=== PATIENT | female | born 1990 | race African-American/Black ===

== ENCOUNTER 2025-05-10 10:30 | Emergency (ER) | payer SELFPAY ==
[2025-05-10 10:33] VITALS: BP 132/85; PULSE 114; RESP 16; TEMP 36.5; O2SAT 100; BMI 32.1
--- NOTE | 2025-05-10 11:19 | EDS_ITS ---
HPI HPI - GI History of Present Illness Chief Complaint: Nausea/Vomiting Informant: patient and friend Narrative Narrative: Patient is a 34-year-old female presenting with persistent emesis, hematemesis, and epigastric abdominal pain. Patient is accompanied by a friend who is supplementing history. Parks And Recreation Manager services were used for this visit, as pt speaks Taiwanese Creole. - Reports emesis since March, with hematemesis. (3-4 weeks) - Associated symptoms include nausea, inability to eat or sleep, and significant acid reflux triggering emesis. - Reports no lower abdominal pain, just epigastric - Denies vaginal bleeding, discharge, or urinary issues. - LMP was 03/14; has not had a menstrual cycle since. Usually has regular menstrual cycles. - Has not performed a home test; concerned about possible , which is why I am here. - 2, para 1 A1 - miscarriage; has a 7-year-old child. PFSH PFSH Home Medications ?Medication ?Instructions ?Recorded ?Last Taken ?Type famotidine 40 mg tablet 40 mg PO DAILY #30 tabs 04/29 07/24 Unknown Rx ondansetron 8 mg disintegrating 8 mg PO Q8H PRN nausea and 05/10/25 Unknown Rx tablet vomiting #15 tabs vit no.95-ferrous 1 tab PO DAILY #30 tabs 05/23 Unknown Rx fumarate 28 mg-folic acid 800 mcg tablet () Allergy/AdvReac Type Severity Reaction Status Date / Time No Known Allergies Allergy Verified 05/10/25 10:37 Surgical History (Updated 05/10/25 @ 11:31 by Karen Su) History of appendectomy Social History Smoking Status: Never smoker ROS [facility] ED Constitutional Constitutional ED: Denies chills or fever(s) Eyes Eyes: Denies change in vision or diplopia ENT ENT ED: Denies rhinorrhea or sore throat Cardiovascular Cardiovascular: Denies chest pain, palpitations or syncope Respiratory/Chest Respiratory/Chest: Denies cough or dyspnea Gastrointestinal Gastrointestinal: Reports abdominal pain, hematemesis, nausea and vomiting; Denies diarrhea, hematochezia or melena Genitourinary Genitourinary ED: Reports LMP (females 10-50) Details: Comment: (03/14/25); Denies dysuria or hematuria Musculoskeletal Musculoskeletal: Denies back pain or neck pain Integumentary Denies abscess or rash Neurologic Neurologic: Denies headache(s), paresthesias or weakness Psychiatric Psychiatric: Denies anxiety or suicidal thoughts EXAM Physical Exam Const Vital Signs: 05/10/25 10:33 05/10/25 12:32 05/10/25 14:00 Temperature 97.7 F L Temperature Source Oral Pulse Rate 114 H 91 79 Respiratory Rate 16 16 Blood Pressure 132/85 H 115/67 100/82 H Blood Pressure Mean 100 83 88 Pulse Ox 100 Oxygen Delivery Method Room Air Positive well nourished and well developed Constitutional Narrative: well-appearing, nad General Appearance ED: well developed and NAD HEENT Reports moist mucous membranes normocephalic and atraumatic Eyes PERRL and EOMs intact bilaterally Neck full ROM and supple Resp normal respiratory effort and clear to auscultation bilaterally Cardio regular rate, regular rhythm and no murmurs GI non-distended GI Narrative: Very mild epigastric tenderness no guarding or rebound. No pulsatile mass. Otherwise benign abdomen no significant tenderness in the lower abdomen or king prapubic. Auscultation: normoactive bowel sounds Palpation: soft Back/Spine no CVA tenderness General Back: other FROM Extremity normal to inspection General Extremety ED: Negative for edema, pulses abnormal or tenderness General Extremity: Negative for edema or pulses abnormal Neuro oriented x3, CN's II-XII intact bilaterally and no sensory deficits noted Sensorium / Orientation: awake and alert Motor Exam: strength 5/5 throughout Psych mental status grossly normal and thought process normal Skin no rashes or lesions noted and no wounds MDM MDM MDM Narrative Medical decision making narrative: Assessment: The patient is a 34-year-old female presenting for several-week history of nausea, vomiting with intermittent blood, lower abdominal pain, and refractory acid reflux. Urine testing in the ED is positive for , placing her in the first trimester; symptoms are therefore attributed to early ?related hyperemesis and underlying gastroesophageal reflux. She does not have any pelvic pain or tenderness or vaginal bleeding, so emergent ultrasound is not indicated at this time, advised to follow-up. Plan: - Administered ondansetron in ED for active nausea. - Initiated oral acid-suppressive therapy for reflux (medication name to be dispensed on discharge). - Prescribed outpatient ondansetron for continued nausea control. - Referral to care center/[facility] for first-trimester care. 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 However some of this was limited due to connection problems with the plastic technician service. Diagnostics: - Urine test ? positive. labs normal otherwise. [place] [id number]. Reevaluations: - Patient reassessed after ondansetron; continues to note nausea but with some improvement. No vomiting in ED. Is comfortable-appearing Portions of this note were generated using voice recognition software ([employer] Dictation). I have reviewed the contents and every effort has been made to ensure accuracy; however, inadvertent errors in grammar, spelling, punctuation, or word choice may occur, that were not noted before signing the document and should not alter the intended clinical meaning. Lab Data Attestation: I reviewed the patient's lab results. Labs: Laboratory Results - last 24 hr 05/10/25 05/10/25 11:25 11:40 WBC 4.3 L RBC 4.71 Hgb 12.9 Hct 39.0 MCV 82.8 MCH 27.4 MCHC 33.1 RDW Std Deviation 38.2 RDW Coeff of Josué 12.6 Plt Count 155 MPV 10.8 Immature Gran % (Auto) 0.200 Neut % (Auto) 52.3 Lymph % (Auto) 33.1 [place] % (Auto) 13.4 H Eos % (Auto) 0.5 Baso % (Auto) 0.5 Absolute Neuts (auto) 2.3 Absolute Lymphs (auto) 1.43 Nucleated RBC % 0 Sodium 137 Potassium 3.3 Chloride 104 Carbon Dioxide 21.9 Anion Gap 11 BUN 6 Creatinine 0.78 Estim Creat Clear Calc 118.93 Est GFR (MDRD) Non-Af 103 BUN/Creatinine Ratio 7.3 L Glucose 96 Calcium 9.2 Total Bilirubin 0.27 AST 15 ALT 11 Alkaline Phosphatase 46 Total Protein 7.0 Albumin 4.3 Globulin 2.8 Albumin/Globulin Ratio 1.5 Lipase 20 HCG, Quant [id number] H Urine Color Yellow Urine Clarity Sl. Cloudy Urine pH 6.0 Ur Specific [place] 1.015 Urine Protein 30 H Urine Glucose (UA) Normal Urine Ketones Negative Urine Occult Blood Negative Urine Nitrite Negative Urine Bilirubin Negative Urine Urobilinogen Normal Ur Leukocyte Esterase Negative Urine RBC 0 SEEN Urine WBC 0 SEEN Ur Squamous Epith Cells 0-5 SEEN Urine Bacteria 1+ Urine Mucus 0 SEEN Urine Test Positive H Discharge Plan Triage Chief Complaint: Nausea/Vomiting ED Provider: Hector Silverio Dx/Rx/DC Orders Clinical Impression: Nausea and vomiting in prior to 22 weeks gestation, First trimester p regnancy, Acute epigastric pain Instructions: 1st Trimester Prescriptions: New ondansetron 8 mg tablet,disintegrating 8 mg PO Q8H PRN (Reason: nausea and vomiting) Qty: 15 0RF PNV no.95-ferrous fumarate-FA [] 28 mg iron- 800 mcg tablet 1 tab PO DAILY Qty: 30 0RF famotidine 40 mg tablet 40 mg PO DAILY Qty: 30 0RF Primary Care Provider: Care Physician,No Primary Referrals: Lien Morgan MD [Med Staff - Active Staff, Obstetrics-Gynecology (OBGYN)] - As soon as possible Referral Note: or care center Activity Restrictions/Additional Instructions: Diphenhydramine as needed at nighttime for trouble sleeping. Print Language: Taiwanese Creole Disposition Disposition: Home, Self Care
[2025-05-10] MEDS: 0.9% Normal Saline (1000mL) 1,000 ML 999 ML IV (11:29)
[2025-05-10 11:32] LABS: Hematocrit 39.0 % (37-47); Hemoglobin 12.9 g/dL (12.0-15.0); Immature Granulocytes Count 0.010 X10^3/uL (0.0-0.0); Mean Corp Hgb Conc 33.1 g/dL (32-36); Mean Corpuscular Volume 82.8 fL (81-99); Mean Platelet Vol. 10.8 fl (6.2-12.0); NRBC Flagged by Analyzer 0 % (0-5); Platelet Count 155 K/mm3 (150-450); RBC Distribution Width CV 12.6 % (11.6-14.6); RBC Distribution Width SD 38.2 fl (35.1-43.9); Red Blood Count 4.71 M/mm3 (4.2-5.4); White Blood Count 4.3 K/mm3 (4.4-11.0)
[2025-05-10 11:43] LABS: Mucous, Urine 0 SEEN /hpf (<or=2+); Red Blood Cells-Urine 0 SEEN /hpf (0-5)
[2025-05-10 11:48] LABS: Color, Urine Yellow (Yellow); Glucose, Dipstick Normal (Normal); Ketone-Dipstick Negative (Negative); Leukocyte Esterase-Dipstick Negative /ul (Negative); Nitrite-Dipstick Negative (Negative); Occult Blood-Urine Negative /ul (Negative); Protein-Dipstick 30 mg/dl (Negative); Specific Gravity, Urine 1.015 (1.002-1.030); Urine Bilirubin Dipstick Negative (Negative)
[2025-05-10 11:51] LABS: AST(SGOT) 15 U/L (<=31); Alanine Aminotransfer ALT/SGPT 11 U/L (<=34); Albumin, Serum 4.3 g/dL (3.5-5.0); Alkaline Phosphatase 46 U/L (35-104); Anion Gap 11 (5-15); BUN 6 mg/dL (4-19); BUN/Creat Ratio 7.3 RATIO (10-20); Calcium,Total 9.2 mg/dL (7.6-11.0); Carbon Dioxide 21.9 mmol/L (21.0-32.0); Chloride 104 mmol/L (98-108); Estimated Creatinine Clearance 118.93 ml/min (50-250); Globulin 2.8 g/dL (2.2-4.2); Glucose 96 mg/dL (70-99); Lipase 20 U/L (13-75); Potassium 3.3 mmol/L (3.3-5.1)
[2025-05-10 11:54] LABS: Squamous Epithelial Cells - UA 0-5 SEEN /hpf (5-10)
[2025-05-10 11:55] LABS: Internal QC Validated? YES +Cl - CLEAR BKGD
[2025-05-10 11:57] LABS: Pregnancy, Urine Positive Negative
[2025-05-10 12:32] VITALS: BP 115/67; PULSE 91; RESP 16
[2025-05-10 13:32] LABS: hCG Titer Quant., Serum 130152 mIU/mL (<9 non-preg)
[2025-05-10 14:00] VITALS: BP 100/82; PULSE 79
[2025-05-10 14:56] VITALS: BP 116/79; PULSE 86; RESP 16; TEMP 36.5; O2SAT 100
== END 2025-05-10 15:07 | disposition home or self-care (01) ==
PROVIDERS: Emergency Provider Emergency Medicine; Visit Provider Emergency Medicine
DX: O21.0 Mild hyperemesis gravidarum (principal); O99.611 Diseases of the digestive system complicating pregnancy, first trimester; K21.9 Gastro-esophageal reflux disease without esophagitis; Z3A.00 Weeks of gestation of pregnancy not specified
CPT/HCPCS: 80053; 81001; 81025; 83690; 84702; 85025; 96361; 96374; 99283; A4216; J2405

== ENCOUNTER 2025-05-22 12:03 | Emergency (ER) | payer SELFPAY ==
[2025-05-22 12:05] VITALS: BP 111/78; PULSE 78; RESP 16; TEMP 36.6; O2SAT 99; BMI 31.4
--- NOTE | 2025-05-22 12:49 | US_ITS ---
PROCEDURE: TRANSVAGINAL W/PREG US 05/22/2025 REASON FOR EXAM: ABD PAIN, PREG TECHNIQUE: Procedure Code: USTVAGP Modality: US Procedure: TRANSVAGINAL W/PREG US FINDINGS Uterus measures 14.1 x 8.5 x 7.8 cm. No uterine fibroids are noted. Cervix is closed. Nonspecific slightly heterogenous appearance of the uterus inferior to the gestational sac. Intrauterine with gestational sac measuring 4.7 cm, yolk sac 5mm, and CRL measuring 37 mm corresponding with 10 weeks and 2 days. heart rate of 171 bpm. EDGAR of 12/16/25. Right ovary measures 4.3 x 3.9 x 2.4 cm and left ovary is not measured but seen. There is normal bilateral symmetrical blood flow within bilateral ovaries. 2.5 x 2.7 x 2.3 cm complex cyst within the right ovary. No significant free fluid within the cul-de-sac. US/Transvaginal w/Preg US IMPRESSION: Intrauterine with gestational age corresponding with 10 weeks and 2 d ays. heart rate of 171 bpm. EDGAR of 12/16/25. Nonspecific slightly heterogenous appearance of the uterus inferior to the gest ational sac. 2.5 x 2.7 x 2.3 cm complex cyst within the right ovary. Reading Location: [facility]
[2025-05-22 12:59] LABS: Red Blood Cells-Urine 0 SEEN /hpf (0-5)
[2025-05-22 13:02] LABS: Color, Urine Yellow (Yellow); Glucose, Dipstick Normal (Normal); Ketone-Dipstick 50 mg/dl (Negative); Leukocyte Esterase-Dipstick 25 /ul (Negative); Nitrite-Dipstick Negative (Negative); Occult Blood-Urine 10 /ul (Negative); Protein-Dipstick 30 mg/dl (Negative); Specific Gravity, Urine 1.020 (1.002-1.030); Urine Bilirubin Dipstick Negative (Negative)
[2025-05-22] MEDS: Lidocaine 2% Viscous15 ML UDC 15 ML PO (13:06)
[2025-05-22] MEDS: Mag /Aluminum/Simeth WCH UDC 30 ML ORAL.SUSP PO (13:06)
[2025-05-22 13:08] LABS: Hematocrit 39.4 % (37-47); Hemoglobin 12.9 g/dL (12.0-15.0); Immature Granulocytes Count 0.000 X10^3/uL (0.0-0.0); Mean Corp Hgb Conc 32.7 g/dL (32-36); Mean Corpuscular Volume 81.6 fL (81-99); Mean Platelet Vol. 11.1 fl (6.2-12.0); NRBC Flagged by Analyzer 0 % (0-5); Platelet Count 159 K/mm3 (150-450); RBC Distribution Width CV 12.6 % (11.6-14.6); RBC Distribution Width SD 37.7 fl (35.1-43.9); Red Blood Count 4.83 M/mm3 (4.2-5.4); White Blood Count 3.4 K/mm3 (4.4-11.0)
[2025-05-22 13:09] LABS: Mucous, Urine 2+ /hpf (<or=2+); Squamous Epithelial Cells - UA 0-5 SEEN /hpf (5-10)
--- NOTE | 2025-05-22 13:30 | EX.ED.DYSGE1 ---
HPI History of Present Illness Chief Complaint: General Illness Narrative Narrative: Patient is a 34-year-old female, G3, P1, A1 approximately 10 weeks presenting to the emergency department for multiple complaints including not being able to be seen by an OB, generalized abdominal discomfort, not sleeping well and nausea/vomiting. Patient is [place] Creole speaking and hotel night auditor was used. Patient states the symptoms have been going since the beginning of March. She states she was seen here on 05/10 and was given OB follow-up but just called 2 days ago and was unable to be seen so she is here to check on the baby. She denies any vaginal bleeding or leakage of fluids. She denies any fever or chills. Denies chest pain or shortness of breath. Denies any changes to her bowel movements. She endorses foul-smelling urine with dysuria. Denies any hematuria. She states that she has been taking her medications that she was prescribed here as prescribed and they have not been helping. PFSH PFSH Home Medications ?Medication ?Instructions ?Recorded ?Last Taken ?Type famotidine 40 mg tablet 40 mg PO DAILY #30 tabs 05/10/25 Unknown Rx ondansetron 8 mg disintegrating 8 mg PO Q8H PRN nausea and 05/10/25 Unknown Rx tablet vomiting #15 tabs vit no.95-ferrous 1 tab PO DAILY #30 tabs 05/10/25 Unknown Rx fumarate 28 mg-folic acid 800 mcg tablet () aluminum-mag hydroxide-simethicone 5 ml PO Q3H PRN dyspepsia #3,000 mL 05/22/25 Unknown Rx 200 mg-200 mg-20 mg/5 mL oral susp (Maalox Advanced) melatonin 5 mg tablet 5 mg PO QHS #14 tabs 05/22/25 Unknown Rx Allergy/AdvReac Type Severity Reaction Status Date / Time No Known Allergies Allergy Verified 05/22/25 12:07 Family History no significant family his Surgical History History of appendectomy Social History Smoking Status: Never smoker ROS ROS ED ROS Narrative see HPI EXAM Physical Exam Narrative Exam Narrative: Vital signs: Reviewed General: Alert and orientedx3. No acute distress. Well appearing, nontoxic. HEENT: Head is normocephalic and atraumatic, sinuses nontender, pupils equal round and reactive. Nares are patent. Oropharynx and throat exams normal. Moist mucous membranes. Neck: Supple without lymphadenopathy nontender Cardiovascular: Regular rate and rhythm, no murmurs. No rubs or gallops. Normal S1 and S2 Respiratory: Clear to auscultation bilaterally. No wheezes, rales, rhonchi Abdominal: Soft and nontender to palpation. Normal bowel sounds. No guarding or rebound. Nonsurgical abdomen Extremities: No tenderness. No bruising. Normal range of motion. Normal sensation. Skin: No rash or redness. The rest of the physical exam is unremarkable Const Vital Signs: 05/22/25 12:05 05/22/25 12:51 05/22/25 14:04 Temperature 98 F Temperature Source Oral Pulse Rate 78 79 Respiratory Rate 16 Respiratory Effort Normal Non-Labored Respiratory Pattern Normal Blood Pressure 111/78 104/72 Blood Pressure Mean 89 82 Pulse Ox 99 99 Oxygen Delivery Method Room Air Room Air 05/22/25 15:04 Temperature 98 F Temperature Source Pulse Rate 80 Respiratory Rate 18 Respiratory Effort Respiratory Pattern Blood Pressure 106/74 Blood Pressure Mean 84 Pulse Ox 100 Oxygen Delivery Method MDM MDM MDM Narrative Medical decision making narrative: Patient is a 34-year-old female G3, P1 presenting to the emergency department for multiple complaints that can be seen in the HPI. Patient was seen and examined. Vitals are stable, resting in bed comfortably. No acute distress. Patient given GI cocktail. With the patients generalized abdominal discomfort subjectively will obtain labs and ultrasound. CBC with mild leukopenia of 3.4 which is consistent with prior labs on 05/10 and a normal hemoglobin. CMP with no significant abnormalities. Lipase within normal limits. Urinalysis with no bacteria, low amount of WBC and leukocyte esterase and negative nitrates, I do not think this is consistent with urinary tract infection. Ultrasound shows intrauterine with gestational age corresponding with 10 weeks and 2 days. heart rate of 171 bpm. EDGAR of 12/16/25. Nonspecific slightly heterogenous appearance of the uterus inferior to the gestational sac. I do not think this nonspecific symptoms is causing her abdominal discomfort and think this can be monitored by OBGYN follow up. 2.5 x 2.7 x 2.3 cm complex cyst within the right ovary. Patient was reevaluated after GI cocktail, some mild improvement in symptoms. Patient updated on the negative workup. Given additional OBGYN follow up and instructed to call Tuesday, given today is Phoebe cannon for follow up as soon as possible. I will prescribe melatonin for her difficulty sleeping. Will prescribe maalox for her acid reflux symptoms as well, she states she has enough zofran and famotidine and does not need refills for these. Patient discharged from the Emergency Department. I do not feel that the patient's evaluation reveals any acute reason for admission at this time. I instructed them to either follow-up with their primary care physician or promptly return to the Emergency Department for reevaluation should symptoms worsen or new symptoms develop. I explained what symptoms would indicate the need to return to the emergency department. Shared decision making was used. The patient voiced understanding of the treatment plan and is agreeable with it. Clinical impression Difficulty sleeping Dysuria Abdominal discomfort History & Record Review Discussion w/independent historian: Patient Additional record(s) reviewed:: Prior ED visit Lab Data Attestation: I reviewed the patient's lab results. Labs: Laboratory Results - last 24 hr 05/22/25 05/22/25 12:54 13:00 WBC 3.4 L RBC 4.83 Hgb 12.9 Hct 39.4 MCV 81.6 MCH 26.7 L MCHC 32.7 RDW Std Deviation 37.7 RDW Coeff of Josué 12.6 Plt Count 159 MPV 11.1 Immature Gran % (Auto) 0.000 Neut % (Auto) 54.5 Lymph % (Auto) 32.2 [place] % (Auto) 12.1 H Eos % (Auto) 0.6 Baso % (Auto) 0.6 Absolute Neuts (auto) 1.8 L Absolute Lymphs (auto) 1.09 Nucleated RBC % 0 Sodium 135 Potassium 3.5 Chloride 103 Carbon Dioxide 20.8 Anion Gap 12 BUN 4 Creatinine 0.79 Estim Creat Clear Calc 116.10 Est GFR (MDRD) Non-Af 102 BUN/Creatinine Ratio 4.8 L Glucose 93 Calcium 9.3 Total Bilirubin 0.35 AST 16 ALT 11 Alkaline Phosphatase 43 Total Protein 7.2 Albumin 4.3 Globulin 2.8 Albumin/Globulin Ratio 1.5 Lipase 24 Urine Color Yellow Urine Clarity Sl. Cloudy Urine pH 6.0 Ur Specific [place] 1.020 Urine Protein 30 H Urine Glucose (UA) Normal Urine Ketones 50 H Urine Occult Blood 10 H Urine Nitrite Negative Urine Bilirubin Negative Urine Urobilinogen Normal Ur Leukocyte Esterase 25 H Urine RBC 0 SEEN Urine WBC 5-10 SEEN Ur Squamous Epith Cells 0-5 SEEN Urine Bacteria 0 SEEN Urine Mucus 2+ Radiography Diagnostic Testing: Clinical Impression(s) from Imaging Studies Obstetrics Ultrasound 05/22/25 12:49 IMPRESSION: Intrauterine with gestational age corresponding with 10 weeks and 2 days. heart rate of 171 bpm. EDGAR of 12/16/25. Nonspecific slightly heterogenous appearance of the uterus inferior to the gestational sac. 2.5 x 2.7 x 2.3 cm complex cyst within the right ovary. Reading Location: [facility] Discharge Plan Triage Chief Complaint: General Illness ED Provider: Viviane Hampton Dx/Rx/DC Orders Clinical Impression: Indigestion, Abdominal discomfort, Dysuria, Difficulty sleeping Instructions: ED Dysuria, Uncertain Cause (Adult), ED GERD (Adult), ED Insomnia Prescriptions: New melatonin 5 mg tablet 5 mg PO QHS Qty: 14 0RF alum-mag hydroxide-simeth [Maalox Advanced] 200-200-20 mg/5 mL suspension 5 ml PO Q3H PRN (Reason: dyspepsia) Qty: 3000 0RF No Action ondansetron 8 mg tablet,disintegrating 8 mg PO Q8H PRN (Reason: nausea and vomiting) Qty: 15 0RF PNV no.95-ferrous fumarate-FA [] 28 mg iron- 800 mcg tablet 1 tab PO DAILY Qty: 30 0RF famotidine 40 mg tablet 40 mg PO DAILY Qty: 30 0RF Primary Care Provider: Care Physician,No Primary Referrals: Lexus Sauceda DO [Med Staff - Active Staff, Obstetrics-Gynecology (OBGYN)] - As soon as possible Care Physician,No Primary [Primary Care Provider, Medical] Activity Restrictions/Additional Instructions: Follow up with an OBGYN as soon as possible. I provided you another office to call below. You can take the melatonin at night to help you sleep. You can take the maalox mixture 5 ml every 3 hours as needed for stomach upset and indigestion. Your evaluation in the Emergency Department did not reveal any acute reason for admission. However, I want to emphasize that you may be early in the course of a disease process or illness even if it is not present. For this reason you should follow-up within 24 hours for reevaluation with either your primary care physician or if necessary back here in the Emergency Department. You should return to the Emergency Department immediately if your symptoms worsen or new symptoms develop. Print Language: Bernie Valle Disposition Disposition: Home, Self Care Discharge Date/Time: 05/22/25 15:32
[2025-05-22 14:04] VITALS: BP 104/72; PULSE 79; O2SAT 99
[2025-05-22 14:15] LABS: AST(SGOT) 16 U/L (<=31); Alanine Aminotransfer ALT/SGPT 11 U/L (<=34); Albumin, Serum 4.3 g/dL (3.5-5.0); Alkaline Phosphatase 43 U/L (35-104); Anion Gap 12 (7-18); BUN 4 mg/dL (4-19); BUN/Creat Ratio 4.8 RATIO (10-20); Calcium,Total 9.3 mg/dL (7.6-11.0); Carbon Dioxide 20.8 mmol/L (20.0-29.0); Chloride 103 mmol/L (96-106); Estimated Creatinine Clearance 116.10 ml/min (50-250); Globulin 2.8 g/dL (2.2-4.2); Glucose 93 mg/dL (70-99); Lipase 24 U/L (13-75); Potassium 3.5 mmol/L (3.5-5.1)
[2025-05-22 15:04] VITALS: BP 106/74; PULSE 80; RESP 18; TEMP 36.6; O2SAT 100
== END 2025-05-22 15:32 | disposition home or self-care (01) ==
PROVIDERS: Emergency Provider Student in an Organized Health Care Education/Training Program; Visit Provider Student in an Organized Health Care Education/Training Program
DX: O99.891 Other specified diseases and conditions complicating pregnancy (principal); O26.891 Other specified pregnancy related conditions, first trimester; O99.611 Diseases of the digestive system complicating pregnancy, first trimester; R10.9 Unspecified abdominal pain; Z3A.10 10 weeks gestation of pregnancy; R30.0 Dysuria; K30 Functional dyspepsia; Z90.49 Acquired absence of other specified parts of digestive tract
CPT/HCPCS: 76817; 80053; 81001; 83690; 85025; 99283; A4216